=== PATIENT | male | born 1960 | race Caucasian/White ===

== ENCOUNTER 2018-02-12 14:16 | Emergency (ER) | payer OTHER ==
[2018-02-12 14:17] VITALS: BP 115/78
--- NOTE | 2018-02-12 14:22 | ER Report ---
History and Physical Time Seen By MD: 14:20 Hx. of Stated Complaint: ALCOHOL INTOX - [facility] CLEARANCE. HPI/ROS CHIEF COMPLAINT: Long-Term clearance HISTORY OF PRESENT ILLNESS: 57-year-old male was brought in by police to determine for care home clearance he was pulled over for being intoxicated reportedly had a point blood alcohol of 260 on arrival ED is no focal complaints is ambulatory no falls no trauma no additional complaints noted REVIEW OF SYSTEMS: Respiratory: No cough, no dyspnea. Cardiovascular: No chest pain, no palpitations. Gastrointestinal: No vomiting, no abdominal pain. Musculoskeletal: No back pain. Remainder of the 14 system rev: Yes Allergies: Coded Allergies: No Known Drug Allergies (Unverified , 02/12/18) Reviewed Nurses Notes: Yes Old Medical Records Reviewed: Yes Physical Exam General Appearance: The patient is alert, has no immediate need for airway protection and no current signs of toxicity. [ ] Eyes: Pupils equal and round no injection. Respiratory: Chest is non tender, lungs are clear to auscultation. Cardiac: regular rate and rhythm [ ] Gastrointestinal: Abdomen is soft and non tender, no masses, bowel sounds normal. Musculoskeletal: Neck: Neck is supple and non tender. Extremities have full range of motion and are non tender. Skin: No rashes or lesions. [ ] DIFFERENTIAL DIAGNOSIS: After history and physical exam differential diagnosis was considered for alcohol intoxication Medical Decision Making ED Course/Re-evaluation ED Course ED Course it deferred male here for care home clearance evidence doctors and laboratory no focal complaints heart-lung examination wrist exam was physically normal released into police custody Decision to Disposition Date: Feb 12, 2018 Decision to Disposition Time: 14:21 Depart Departure Impression: Primary Impression: Alcohol intoxication Condition: Condition Unchanged Disposition: [facility] TO [facility]/CORRECTIONAL F Patient Instructions: Alcohol Intoxication (DC) FILOMENA SANCHEZ MD Feb 12, 2018 14:22
== END 2018-02-12 14:35 | disposition home or self-care (01) ==
LOC: ER 14:21
DX: F10.920 Alcohol use, unspecified with intoxication, uncomplicated (principal)
CPT/HCPCS: 99281